=== PATIENT | female | born 1935 | race Caucasian/White ===

== ENCOUNTER → 2019-12-05 | Outpatient (CLI) | payer OTHER, MEDICARE ==
[~2019-12-05] MED LIST: ALEVE220 MG PO; AMBIEN 5 MG TABL5 M1 PO; AMITRIPTYLINE H25 M2 PO; B12INJ IM; BIOTIN1000 MCG PO; DESONIDE CR. 1515 GM TOP; DIFLUNISAL500 MG PO; EQ GLUCOSAMINE1 EAC1 PO; ERTACZO60 GM TOP; FEOSOL325 M1 PO; FLAX SEED OIL1000 MG PO; FLOVENT HFA 1110 MCG INH; HYDROCODONE-AP1 EAC6 PO; HYDROXYCHLOROQ200 M1 PO; IMDUR 30 MG TAB30 M1 PO; LASIX 80 MG TAB80 MG PO; LORZONE375 MG PO; NEURONTIN600 MG PO; NEXIUM40 MG PO; NORVASC5 MG PO; POTASSIUM20 PO; QUESTRAN LIGHT210 GM PO; TOPICORT15 G1 TOP; TRAZODONE HCL50 MG PO; TUMS PO; TYLENOL PM EX-1 EACH PO; VITAMIN D3400 UNIT PO; ZYRTEC10 M5 PO
== END ==
LOC: SJCVC 11:24
DX: I25.10 Atherosclerotic heart disease of native coronary artery without angina pectoris (principal); E78.5 Hyperlipidemia, unspecified; I10 Essential (primary) hypertension; Z79.899 Other long term (current) drug therapy; Z87.891 Personal history of nicotine dependence